=== PATIENT | male | born 1945 | race Caucasian/White ===

== ENCOUNTER 2019-06-15 14:25 | Inpatient (IN) | payer MEDICARE, OTHER ==
[~2019-06-15] VITALS: Ht 175.3 cm; Wt 81.9 kg
[~2019-06-15 14:25] MED LIST: ATOR20TA; FEXO-8; FURO1TAB31; LEVO25TA49; MONT4GRA; POTA-167
[2019-06-15 15:19] LABS: Basophils # (auto) 0.1 uL; Basophils % (auto) 0.5 % (0.0-2.0); Eosinophils # (auto) 0 uL; Hematocrit 44.4 % (41.0-53.0); Hemoglobin 15.1 g/dL (13.5-17.5); Lymphocytes # (auto) 0.8 uL; Mean Corpuscular Hemoglobin 32.2 pg (28.0-32.0); Mean Corpuscular Volume 94.6 fL (80.0-100.0); Monocytes # (auto) 1.9 uL; Monocytes % (auto) 12.6 % (0.0-12.0); Neutrophils # (auto) 12.6 uL; Neutrophils % (auto) 81.9 % (37.0-80.0); Platelet Count (auto) 389 10^3/uL (140-450); Red Blood Cells 4.69 10^6/uL (4.5-5.90); Red Cell Distribution Width 13.2 % (11.8-14.3); White Blood Cell 15.4 10^3/uL (4.4-10.8)
[2019-06-15 15:29] LABS: Albumin 3.2 g/dL (3.4-5.0); Calcium 8.9 mg/dL (8.5-10.1); Potassium 3.2 mmol/L (3.5-5.1)
[2019-06-15 15:32] LABS: BUN/Creatinine Ratio 22.5
[2019-06-15 15:34] LABS: Bilirubin, Total 0.8 mg/dL (0.2-1.0); Total Protein 7.8 g/dL (6.4-8.2)
[2019-06-15] MEDS ORDERED: SODIUM CHLORIDE 0.9% 1,000 ML IV ONE (16:11)
[2019-06-15] MEDS ORDERED: CLINDAMYCIN 600MG IV 50 ML IV ONE (16:15)
[2019-06-15] MEDS ORDERED: cefTRIAXone 1GM/50ML D5W 50 ML IV ONE (16:15)
[2019-06-15 17:03] LABS: Lactic Acid w/Reflex 4.6 mmol/L (0.4-2.0)
[2019-06-15] MEDS ORDERED: KETOROLAC TROMETH 30 MG/ML 1ML VIAL IV ONE (18:30)
[2019-06-15] MEDS ORDERED: ALBUTEROL SULF 2.5 MG/0.5ML(0.5%) NEB SOLN NEB STA ×2 (22:03→22:19)
[2019-06-15] MEDS ORDERED: ALBUTEROL SULF 2.5 MG/0.5ML(0.5%) NEB SOLN ONE (22:06)
[2019-06-15] MEDS ORDERED: IPRATROPIUM BROM 0.5 MG/2.5ML INH SOL ONE (22:06)
[2019-06-15 22:08] LABS: Urine Bacteria NONE SEEN /hpf (None Seen); Urine Blood 3+ /uL (Negative); Urine Hyaline Cast FEW /lpf (0 - 2); Urine Mucus MANY (None Seen); Urine Specific Gravity 1.028 (1.001-1.035); Urine Sperm PRESENT /hpf (None Seen); Urine WBC 24 /hpf (0 - 3)
[2019-06-15] MEDS ORDERED: IPRATROPIUM BROM 0.5 MG/2.5ML INH SOL NEB ONE ×2 (22:15→22:30)
[2019-06-15] MEDS ORDERED: FUROSEMIDE 20 MG/2 ML VIAL IV ONE (22:30)
[2019-06-16] MEDS ORDERED: ONDANSETRON HCL 4 MG/2 ML VIAL IV PRN (01:15)
[2019-06-16] MEDS ORDERED: NITROGLYCERIN 0.4 MG SL TAB SL PRN (01:15)
[2019-06-16] MEDS ORDERED: ACETAMINOPHEN 325 MG TAB PO PRN (01:15)
[2019-06-16] MEDS ORDERED: MORPHINE SULF INJ 2 MG/ML SYRINGE 1ML IV PRN (01:15)
[2019-06-16] MEDS: HYDROcodone-ACET 5/325MG TAB PO PRN ×2 (01:54→14:07)
[2019-06-16] MEDS ORDERED: POTASSIUM CHL 20 Meq TABLET PO ONE ×2 (02:00→15:30)
[2019-06-16] MEDS ORDERED: IOHEXOL 350 MG/ML 100ML IJ ONE (02:49)
[2019-06-16 03:29] VITALS: BP 124/81
[2019-06-16] MEDS ORDERED: ENOXAPARIN SOD 100 MG/1 ML SYRINGE SC ONE (03:30)
[2019-06-16] MEDS: CLINDAMYCIN 600MG IV 50 ML IV SCH ×3 (03:44→19:49)
[2019-06-16] MEDS: LEVOTHYROXINE SODIUM 25 MCG TAB PO SCH (07:14)
--- NOTE | 2019-06-16 08:30 | NUR ---
Telemetry admit from ER KOJOELOISE admitted to Telemetry unit, NO SBAR received. Patient oriented to Lashanda Castanon, primary RN, unit, room, bed, and unit policies regarding patient care and visiting hours. Patient now on continuous telemetry monitoring, tele box # 39 and telemetry reading on arrival to unit is sinus tach 105. Patient placed on bedside oxygen, weighed by bedscale and encouraged to call if they need something. Bed locked in lowest position, side rails up x3, call light within reach, bed alarm on for safety. All questions and concerns addressed, patient verbalized understanding.
[2019-06-16 09:00] VITALS: BP 153/78
--- NOTE | 2019-06-16 09:41 | NUR ---
URINE SENT TO LAB
[2019-06-16] MEDS ORDERED: ENOXAPARIN SOD 80 MG/0.8ML SYRINGE SC ONE (10:00)
[2019-06-16] MEDS: ASPirin 81 mg TAB PO SCH (10:00)
[2019-06-16] MEDS ORDERED: ENOXAPARIN SOD 40 MG/0.4 ML SYRINGE SC SCH (10:00)
[2019-06-16] MEDS: FUROSEMIDE 40 MG TAB PO SCH (10:00)
[2019-06-16] MEDS: ENOXAPARIN SOD 80 MG/0.8ML SYRINGE SC SCH ×2 (10:00→23:29)
[2019-06-16] MEDS: cefTRIAXone 1GM/50ML D5W 50 ML IV SCH (10:00)
[2019-06-16] MEDS: FAMOTIDINE 20 MG TAB PO SCH ×2 (10:00→23:29)
--- NOTE | 2019-06-16 10:45 | NUR ---
WOUND PHOTOS TAKEN.
--- NOTE | 2019-06-16 11:27 | NUR ---
ROBERT NUNEZ REGARDING PT. REQUESTING NICOTINE PATCH.
[2019-06-16] MEDS: IPRATROPIUM BROM 0.5 MG/2.5ML INH SOL NEB SCH ×4 (11:45→23:34)
[2019-06-16] MEDS: ALBUTEROL SULF 2.5 MG/0.5ML(0.5%) NEB SOLN NEB SCH ×4 (11:45→23:33)
[2019-06-16 11:53] LABS: Basophils # (auto) 0.1 uL; Basophils % (auto) 0.7 % (0.0-2.0); Eosinophils # (auto) 0 uL; Eosinophils % (auto) 0.2 % (0.0-7.0); Hemoglobin 13.8 g/dL (13.5-17.5); Lymphocytes # (auto) 1.1 uL; Lymphocytes % (auto) 13.3 % (10.0-50.0); Mean Corpuscular Hemoglobin 32.4 pg (28.0-32.0); Mean Corpuscular Hgb Conc. 34.4 g/dL (32.0-36.0); Mean Corpuscular Volume 94.2 fL (80.0-100.0); Monocytes # (auto) 0.9 uL; Monocytes % (auto) 10.6 % (0.0-12.0); Neutrophils # (auto) 6.1 uL; Neutrophils % (auto) 75.2 % (37.0-80.0); Platelet Count (auto) 292 10^3/uL (140-450); Red Blood Cells 4.25 10^6/uL (4.5-5.90); Red Cell Distribution Width 13.3 % (11.8-14.3)
[2019-06-16 12:06] LABS: Albumin 2.6 g/dL (3.4-5.0); Calcium 8.5 mg/dL (8.5-10.1); Magnesium 1.9 mg/dL (1.6-2.6); Potassium 3.4 mmol/L (3.5-5.1)
[2019-06-16 12:11] LABS: BUN/Creatinine Ratio 29.7; Bilirubin, Total 0.7 mg/dL (0.2-1.0); Total Protein 6.9 g/dL (6.4-8.2)
[2019-06-16 13:00] VITALS: BP 135/76
--- NOTE | 2019-06-16 13:05 | NUR ---
Patient taken to radiology. No distress upon departure.
--- NOTE | 2019-06-16 15:26 | NUR ---
Alonso bag changed Found bag leaking all over the floor after 2nd attempt to lock close, continues to leak. Complete bag changed out.
[2019-06-16] MEDS ORDERED: NICOTINE 21MG/24 HR TOPICAL PATCH TD ONE (15:30)
--- NOTE | 2019-06-16 16:03 | NUR ---
Critical lab value Trop 1.18, trending down. MD Solorzano aware. No new orders.
[2019-06-16 17:00] VITALS: BP 165/105
[2019-06-16] MEDS ORDERED: LEVO125T7 PO (17:45)
[2019-06-16] MEDS: POTASSIUM CHL 20MEQ/100ML 100 ML IV SCH ×2 (17:57→23:24)
--- NOTE | 2019-06-16 19:30 | NUR ---
Opening Shift Note Assumed care of patient, awake and alert. No S/S of distress/SOB or pain. Instructed on POC and to call for assist PRN, will continue to monitor for changes Q1hr and PRN.
--- NOTE | 2019-06-16 21:00 | NUR ---
Right shoulder scabbed wound and right dawkins scabbed wound cleansed with wound cleanser, pat dry with sterile gauze. Right shoulder scabbed wound covered with optifoam gentle and right dawkins covered with non-adherent dressing and kerlix.
[2019-06-16 22:00] VITALS: BP 144/87
[2019-06-16] MEDS ORDERED: POTASSIUM CHL 20MEQ/100ML 100 ML IV SCH (22:00)
[2019-06-16] MEDS ORDERED: FUROSEMIDE 20 MG/2 ML VIAL IV ONE (22:45)
--- NOTE | 2019-06-16 22:45 | NUR ---
Hospitalist Dimitry Subramanian,ROSALINA, made aware of patient's shortness of breath, sounding wet. Lasix 20 mg IV given as ordered by hospitalist. Care continued.
[2019-06-16] MEDS: ATORVASTATIN 20 MG TAB PO SCH (23:29)
[2019-06-16] MEDS: MONTELUKAST SODIUM 10 MG TAB PO SCH (23:29)
[2019-06-17] MEDS: TEMAZEPAM 15 MG CAP PO PRN (00:51)
[2019-06-17] MEDS: CLINDAMYCIN 600MG IV 50 ML IV SCH ×3 (02:40→18:32)
[2019-06-17 05:00] VITALS: BP 132/76
[2019-06-17] MEDS: ALBUTEROL SULF 2.5 MG/0.5ML(0.5%) NEB SOLN NEB SCH ×3 (06:28→19:34)
[2019-06-17] MEDS: IPRATROPIUM BROM 0.5 MG/2.5ML INH SOL NEB SCH ×3 (06:28→19:34)
[2019-06-17] MEDS: LEVOTHYROXINE SODIUM 25 MCG TAB PO SCH (06:44)
[2019-06-17 07:21] LABS: Basophils # (auto) 0.1 uL; Basophils % (auto) 0.9 % (0.0-2.0); Eosinophils # (auto) 0 uL; Eosinophils % (auto) 0.5 % (0.0-7.0); Hematocrit 36.2 % (41.0-53.0); Hemoglobin 12.6 g/dL (13.5-17.5); Lymphocytes # (auto) 1.4 uL; Lymphocytes % (auto) 18.8 % (10.0-50.0); Mean Corpuscular Hgb Conc. 34.9 g/dL (32.0-36.0); Mean Corpuscular Volume 94.6 fL (80.0-100.0); Monocytes # (auto) 0.9 uL; Monocytes % (auto) 11.9 % (0.0-12.0); Neutrophils # (auto) 5.1 uL; Neutrophils % (auto) 67.9 % (37.0-80.0); Platelet Count (auto) 288 10^3/uL (140-450); Red Blood Cells 3.83 10^6/uL (4.5-5.90); Red Cell Distribution Width 13.3 % (11.8-14.3); White Blood Cell 7.6 10^3/uL (4.4-10.8)
--- NOTE | 2019-06-17 07:30 | NUR ---
Report given to oncoming RN.
[2019-06-17 07:39] LABS: Calcium 8.3 mg/dL (8.5-10.1); Potassium 3.7 mmol/L (3.5-5.1)
[2019-06-17 09:00] VITALS: BP 140/72
[2019-06-17] MEDS ORDERED: chlordiazePOXIDE HCL 5 MG CAP PO PRN (09:30)
[2019-06-17] MEDS ORDERED: LORazepam 2MG/ML-1ML VIAL IV PRN (09:30)
--- NOTE | 2019-06-17 09:36 | NUR ---
Dr. Wells in to see patient as hospitalist.
[2019-06-17] MEDS: cefTRIAXone 1GM/50ML D5W 50 ML IV SCH (09:53)
[2019-06-17] MEDS: ASPirin 81 mg TAB PO SCH (09:56)
[2019-06-17] MEDS: THIAMINE HCL 100 MG TAB PO SCH (09:56)
[2019-06-17] MEDS: FOLIC ACID 1 MG TAB PO SCH (09:56)
[2019-06-17] MEDS: MULTIPLE VITAMINS W/ MINERALS TAB PO SCH (09:56)
[2019-06-17] MEDS: FAMOTIDINE 20 MG TAB PO SCH ×2 (09:56→21:56)
[2019-06-17] MEDS: FUROSEMIDE 40 MG TAB PO SCH (09:57)
[2019-06-17] MEDS: ENOXAPARIN SOD 80 MG/0.8ML SYRINGE SC SCH ×3 (10:00→21:57)
--- NOTE | 2019-06-17 11:45 | NUR ---
WOUND CARE NOTE: IN TO SEE PATIENT AT THIS TIME PER WOUND CARE CONSULT REQUEST. PATIENT ADMITTED TO [facility] WITH DIAGNOSIS OF SEPSIS, RLE CELLULITIS. CURRENT AYDEE SCORE IS 16. PATIENT STATES THAT HE HAS HISTORY WITH CHRONIC VENOUS STASIS ULCERS. CURRENTLY HE HAS ONE LARGE 9 X 14 CM FULL THICKNESS STASIS ULCER TO THE RIGHT ROBERTS/CALF. PATIENT STATES THAT ULCER HAS BEEN OPEN FOR MORE THAN 2 MONTHS. WOUND LOOKS CELLULITIC, WITH EDEMA, DARK RED ERYTHEMA. WOUND IS WEEPING LIGHT TO MODERATE AMOUNTS OF SEROUS DRAINAGE. APPLIED THERAHONEY GAUZE, OPTILOCK DRESSING, WRAPPED WITH KERLIX, SECURE WITH TAPE. ELEVATED LEG UP ONTO PILLOWS FOR EDEMA CONTROL. PATIENT EDUCATED IN WOUND CARE AND STASIS ULCERS. PATIENT VERBALIZED UNDERSTANDING. PATIENT HAS A 3 X 2.5 DM PARTIAL THICKNESS SKIN TEAR/ABRASION TO THE RIGHT SHOULDER A RESULT OF FALLING. APPLIED THERAHONEY, OPTIFOAM GENTLE DRESSING. RECOMMEND: FREQUENT TURN SCHEDULE Q 2 HOURS, PRN CONDITION PERMITS, WITH PRESSURE REDISTRIBUTION USING PILLOWS/WEDGES WHEN IN BED, SKIN/WOUND CARE PLAN, Q 3 DAY/PRN DRESSING CHANGE TO RIGHT SHOULDER WOUND, EOD/PRN DRESSING CHANGE TO WOUND ON RIGHT ROBERTS/CALF, ELEVATION OF LEGS UP ONTO PILLOWS FOR EDEMA CONTROL, DIETARY CONSULT, CONTINUED MONITORING BY WOUND CARE TEAM. Addendum: 06/17/19 at 1841 by Veronika Daniels RN Amended: Links added.
[2019-06-17 13:00] VITALS: BP 118/64
[2019-06-17 17:00] VITALS: BP 142/85
--- NOTE | 2019-06-17 20:00 | NUR ---
RECEIVE IN BED ATCHING TV NO SOB NOTED
[2019-06-17] MEDS: MONTELUKAST SODIUM 10 MG TAB PO SCH (21:56)
[2019-06-17] MEDS: ATORVASTATIN 20 MG TAB PO SCH (21:56)
[2019-06-17 22:00] VITALS: BP 145/85
[2019-06-18] MEDS: ALBUTEROL SULF 2.5 MG/0.5ML(0.5%) NEB SOLN NEB SCH ×4 (00:06→18:15)
[2019-06-18] MEDS: IPRATROPIUM BROM 0.5 MG/2.5ML INH SOL NEB SCH ×4 (00:07→18:15)
[2019-06-18] MEDS: TEMAZEPAM 15 MG CAP PO PRN ×2 (02:18→22:07)
[2019-06-18] MEDS: CLINDAMYCIN 600MG IV 50 ML IV SCH ×3 (02:31→18:25)
[2019-06-18 05:08] VITALS: BP 135/77
[2019-06-18] MEDS: LEVOTHYROXINE SODIUM 25 MCG TAB PO SCH (06:14)
[2019-06-18 08:30] VITALS: BP 151/84
--- NOTE | 2019-06-18 09:05 | NUR ---
Dr. Wells in to see patient as hospitalist.
[2019-06-18] MEDS: ENOXAPARIN SOD 80 MG/0.8ML SYRINGE SC SCH ×2 (10:11→22:07)
[2019-06-18] MEDS: MULTIPLE VITAMINS W/ MINERALS TAB PO SCH (10:11)
[2019-06-18] MEDS: ASPirin 81 mg TAB PO SCH (10:11)
[2019-06-18] MEDS: FUROSEMIDE 40 MG TAB PO SCH (10:12)
[2019-06-18] MEDS: THIAMINE HCL 100 MG TAB PO SCH (10:13)
[2019-06-18] MEDS: FAMOTIDINE 20 MG TAB PO SCH ×2 (10:13→22:06)
[2019-06-18] MEDS: FOLIC ACID 1 MG TAB PO SCH (10:13)
[2019-06-18] MEDS: cefTRIAXone 1GM/50ML D5W 50 ML IV SCH (10:14)
[2019-06-18 12:30] VITALS: BP 152/88
--- NOTE | 2019-06-18 13:45 | NUR ---
NUTRITION CONSULT/ASSESSMENT NOTES Please refer to link notes of nutrition screen form filed under the intervention section of the plan of care for further details. Est. Needs: 1700 kcal to 2100 kcal (20-25 kcal/kgBW), 85 gms to 101 gms pro (1.0-1.2 gms/kgBW, mod hypoalbuminemia wound healing ). Will continue to monitor pertinent labs and reassess nutrient need prn Thank you fort this consult. Addendum: 06/18/19 at [address] Amended: Links added.
[2019-06-18 17:09] VITALS: BP 139/87
[2019-06-18 21:00] VITALS: BP 135/75
[2019-06-18] MEDS: ATORVASTATIN 20 MG TAB PO SCH (22:06)
[2019-06-18] MEDS: MONTELUKAST SODIUM 10 MG TAB PO SCH (22:06)
--- NOTE | 2019-06-18 23:30 | NUR ---
Opening Shift Note Assumed care of patient, asleep. No S/S of distress/SOB or pain. Instructed on POC and to call for assist PRN, will continue to monitor for changes Q1hr and PRN.Report given by Kaylah Harley
[2019-06-19] VITALS (8 sets, daily range): BP systolic 117–150; BP diastolic 69–79
[2019-06-19] MEDS: ALBUTEROL SULF 2.5 MG/0.5ML(0.5%) NEB SOLN NEB SCH ×5 (00:19→20:01)
[2019-06-19] MEDS: IPRATROPIUM BROM 0.5 MG/2.5ML INH SOL NEB SCH ×5 (00:20→20:00)
[2019-06-19] MEDS: CLINDAMYCIN 600MG IV 50 ML IV SCH ×3 (02:37→18:44)
[2019-06-19 05:07] LABS: Basophils # (auto) 0.1 uL; Eosinophils # (auto) 0.2 uL; Eosinophils % (auto) 3.4 % (0.0-7.0); Hematocrit 40.9 % (41.0-53.0); Hemoglobin 14.2 g/dL (13.5-17.5); Lymphocytes # (auto) 1.1 uL; Lymphocytes % (auto) 17.5 % (10.0-50.0); Mean Corpuscular Hemoglobin 32.9 pg (28.0-32.0); Mean Corpuscular Hgb Conc. 34.8 g/dL (32.0-36.0); Mean Corpuscular Volume 94.6 fL (80.0-100.0); Monocytes # (auto) 0.9 uL; Neutrophils # (auto) 3.8 uL; Neutrophils % (auto) 63.1 % (37.0-80.0); Nucleated Red Blood Cells % 0.1 %; Platelet Count (auto) 296 10^3/uL (140-450); Red Blood Cells 4.32 10^6/uL (4.5-5.90); Red Cell Distribution Width 13.1 % (11.8-14.3)
[2019-06-19 05:24] LABS: Albumin 2.5 g/dL (3.4-5.0); Calcium 8.1 mg/dL (8.5-10.1); Potassium 3.6 mmol/L (3.5-5.1)
[2019-06-19 05:27] LABS: BUN/Creatinine Ratio 22.4
[2019-06-19 05:29] LABS: Bilirubin, Total 0.8 mg/dL (0.2-1.0); Total Protein 6.8 g/dL (6.4-8.2)
[2019-06-19] MEDS: LEVOTHYROXINE SODIUM 25 MCG TAB PO SCH (05:47)
[2019-06-19 07:11] LABS: Urine Bacteria NONE SEEN /hpf (None Seen); Urine Blood 3+ /uL (Negative); Urine WBC 1083 /hpf (0 - 3); Urine WBC Clumps PRESENT /hpf (None Seen)
--- NOTE | 2019-06-19 07:32 | NUR ---
Report given to Kaylah Rankin, patient is resting no distress.
[2019-06-19 08:01] LABS: Urine Specific Gravity 1.021 (1.001-1.035)
--- NOTE | 2019-06-19 08:15 | NUR ---
Spoke with stress lab, patient try held for stress test.
--- NOTE | 2019-06-19 09:00 | NUR ---
Patient off unit to stress lab
[2019-06-19] MEDS ORDERED: ADENOSINE 154 MG in GIVE UN-DILUTED 0 ML IV STA (09:25)
[2019-06-19] MEDS ORDERED: ASPirin 81 mg TAB PO SCH (10:00)
--- NOTE | 2019-06-19 10:15 | NUR ---
Patient back on unit, stress test not completed, spoke with Lor TECHNICAL EXPERT and Radha TECHNICAL EXPERT about patient stress test, they spoke with patient and talked with radiology. Patient to be taken back down to complete test.
[2019-06-19] MEDS: cefTRIAXone 1GM/50ML D5W 50 ML IV SCH (10:16)
[2019-06-19] MEDS ORDERED: DOBUTamine 1000MCG/ML 250 ML IV ONE (10:35)
[2019-06-19] MEDS ORDERED: ATROPINE SULF 1 MG/10ml SYR ONE (10:49)
[2019-06-19 11:37] LABS: Folate (Folic Acid) 4.51 ng/mL (5.38-24)
--- NOTE | 2019-06-19 12:15 | NUR ---
Family at bedside, patient back from stress lab, patient family refusing to allow patient care upset about patient bruised arm and dressings not being changed, patient family informed the patient has been down at stress test, patient family unhappy with care, Charge nurse notified.
[2019-06-19] MEDS ORDERED: CYANOCOBALAMIN 500 MCG TAB PO ONE (12:45)
[2019-06-19] MEDS ORDERED: ADENOSINE 75 MG in GIVE UN-DILUTED 0 ML IV STA ×2 (13:21→13:25)
--- NOTE | 2019-06-19 13:25 | NUR ---
I ENTERED INTO MY PATIENT'S ROOM AFTER BREAKING SOMEONE FOR LUNCH WITH MY ORIENTEE (GEETA CORONA) TO OBTAIN PATIENT'S VITAL SIGNS. FAMILY MEMBERS WERE AT BEDSIDE AND BEGAN ASKING QUESTIONS SOON WE ENTERED THE ROOM, SUCH ; WHEN DID THE PATIENT RETURN FROM THE PROCEDURE? WHY HAS THE PATIENT BEEN WAITING FOR 45 MINUTES BEFORE ANYONE ENTERED THE ROOM? WHAT IS THE PATIENT'S STATUS? HOW COME THE PATIENT'S BEDDING AND GOWN HAVEN'T BEEN CHANGED YET? THEY WERE ALSO MAKING COMPLAINTS ABOUT HOW UPSET THEY WERE WITH PATIENT CARE. I APOLOGIZED TO THE FAMILY IN HOPES TO CALM THEM DOWN AND ASKED IF I CAN STILL OBTAIN THE PATIENT'S VITAL SIGNS SINCE HE RECENTLY RETURNED FROM A PROCEDURE. THE FAMILY STATED, "HE JUST STARTED EATING I RATHER YOU LEAVE HIM ALONE". I INFORMED THE FAMILY THAT I WOULD STILL LIKE TO OBTAIN THE PATIENT'S VITALS SO I CAN GIVE THEM TO THE NURSE. THE FAMILY STILL DECLINED AND BEGAN TO RAISE THEIR VOICES STATING THAT I WAS BEING, "SHORT" WITH THEM AND RUDE. I INFORMED THE FAMILY THAT I WOULD LET THE NURSE KNOW WHAT THEY REQUESTED AND THAT I WOULD LEAVE THE PATIENT ALONE. I WALKED OUT OF THE ROOM TO INFORM THE NURSE ABOUT HER TAKING THE VITAL SIGNS INSTEAD OF ME. THE FAMILY MEMBERS WALKED OUT BEHIND ME AND BEGAN INTERRUPTING MY EXPLANATION TO THE NURSE. I BECAME SILENT AND LET THE FAMILY CONTINUE TALKING AT BOTH MYSELF AND THE NURSE. BEFORE I COULD REMOVE MYSELF FROM THE NURSING STATION FAMILY BEGAN TO DIRECT THEIR AGGRESSION TOWARDS ME. I REMAINED SILENT IN FRONT OF FELLOW STAFF MEMBERS THE FAMILY CONTINUED. WITHOUT RESPONDING TO THEIR VERBAL ABUSE, I REMOVED MYSELF FROM THE UNIT AND DECIDED TO STEP AWAY AND HEAD TOWARDS THE BREAK ROOM. I INFORMED MY ORIENTEE OF HOW TO INFORM THE NURSES WHEN A PATIENT OR FAMILY REFUSES CARE TO THE PATIENT. I AM EXPLAINING THE STEPS TO INFORMING THE NURSE, ANOTHER FAMILY MEMBER COMES OUT OF THE ROOM AND APPROACHES BOTH MYSELF AND THE ORIENTEE WITH HER PHONE OUT WHILE SHE IS WATCHING US AWAY FROM THE NURSING STATION. AT THAT POINT NURSE EZEKIEL COMES OVER TO ASK IF THE FAMILY NEEDED HELP WITH SOMETHING IN ORDER TO GAIN THE FAMILY MEMBER'S ATTENTION AND DIRECT THE FAMILY AWAY FROM US. SHE BEGAN CALLING OUT EXPLICIT LANGUAGE SHE HEADED BACK TO THE ROOM. THE SECURITY CLERK THEN CALLED SECURITY TO ENSURE THAT THERE WAS SOME FORM OF REINFORCEMENT TO HELP CALM THE SITUATION DOWN.
--- NOTE | 2019-06-19 14:45 | NUR ---
PATIENT REFUSED TO BE CLEANED UP, PATIENT AGREED TO BE CLEANED UP AFTER RESTING AGREED TO 5PM FOR DRESSING CHANGE AND BED BATH.
[2019-06-19] MEDS: FAMOTIDINE 20 MG TAB PO SCH ×2 (14:51→22:11)
[2019-06-19] MEDS: FUROSEMIDE 40 MG TAB PO SCH (14:51)
[2019-06-19] MEDS: THIAMINE HCL 100 MG TAB PO SCH (14:52)
[2019-06-19] MEDS: MULTIPLE VITAMINS W/ MINERALS TAB PO SCH (14:52)
[2019-06-19] MEDS: FOLIC ACID 1 MG TAB PO SCH (14:53)
[2019-06-19] MEDS: ENOXAPARIN SOD 80 MG/0.8ML SYRINGE SC SCH (14:53)
--- NOTE | 2019-06-19 17:15 | NUR ---
BED BATH GIVEN AND ZGUARD APPLIED TO RASH ON PATIENT BACK
[2019-06-19] MEDS ORDERED: NICOTINE 21MG/24 HR TOPICAL PATCH TD ONE (17:30)
--- NOTE | 2019-06-19 18:00 | NUR ---
SCHWARZ CATHETER IRRIGATED, WOUND PHOTOS TAKEN, WOUND DRESSINGS CHANGED.
--- NOTE | 2019-06-19 18:50 | NUR ---
DR WALKER AT BEDSIDE
[2019-06-19] MEDS ORDERED: diphenhdrAMINE HCL 50 MG/1 ML VL IV ONE (19:00)
--- NOTE | 2019-06-19 19:25 | NUR ---
REPORT GIVEN TO LILI NOLAND, COMPUTER SECURITY SPECIALIST WILL ASSUME CARE.
--- NOTE | 2019-06-19 19:53 | NUR ---
RECEIVED PATIENT FROM DAY SHIFT RN. PATIENT RESTING IN BED. NO S/S OF DISTRESS NOTED. C/O PAIN @ 610. WILL COME BACK FOR PAIN MEDICATION LATER. SCHWARZ CATH IN PLACE DRAINING GRAVITY WITH FRESH RED URINE. DRESSING ON RIGHT LEG C/D/I AND ELEVATED WITH A PILLOW. REINFORCED NPO AFTER MIDNIGHT FOR PROCEDURE TOMORROW. POC INSTRUCTED AND ENCOURAGED PATIENT TO CALL FOR HUMAN SERVICES INSTRUCTOR IF NEEDED. BED IN LOWEST POSITION WITH SIDE RAILS UP X 2. CALL VERMA WITHIN REACH. ALARM ON. CONTINUE TO MONITOR FOR CHANGES Q1H AND PRN.
[2019-06-19] MEDS: HYDROcodone-ACET 5/325MG TAB PO PRN (20:22)
--- NOTE | 2019-06-19 20:24 | NUR ---
MEDICATED PATIENT FOR PAIN @ 02/27. CONTINUE TO MONITOR.
[2019-06-19] MEDS: SALINE 0.65 % NASAL SPRAY 45ML BOTTLE EACHNOSTRI SCH (22:10)
[2019-06-19] MEDS: ATORVASTATIN 20 MG TAB PO SCH (22:11)
[2019-06-19] MEDS: MONTELUKAST SODIUM 10 MG TAB PO SCH (22:11)
--- NOTE | 2019-06-19 23:42 | NUR ---
BLADDER IRRIGATION 200 ML, AND WITHDREW 200 ML RED URINE WITH CLOTS, UNTIL TURNED PINK. PATIENT TOLERATED WELL. CONTINUE TO MONITOR.
[2019-06-20] MEDS: IPRATROPIUM BROM 0.5 MG/2.5ML INH SOL NEB SCH ×5 (00:29→19:08)
[2019-06-20] MEDS: ALBUTEROL SULF 2.5 MG/0.5ML(0.5%) NEB SOLN NEB SCH ×5 (00:29→19:08)
--- NOTE | 2019-06-20 00:49 | NUR ---
REINFORCED NPO FROM NOW ON. FOOD AND WATER REMOVED FROM BEDSIDE. CONTINUE TO MONITOR.
--- NOTE | 2019-06-20 03:00 | NUR ---
PATIENT RESTING IN BED. NO S/S OF DISTRESS NOTED. CONTINUE TO MONITOR.
[2019-06-20] MEDS: CLINDAMYCIN 600MG IV 50 ML IV SCH ×3 (03:02→18:11)
[2019-06-20 04:54] LABS: INR 0.95 (0.9-1.15); Partial Thromboplastin Time 30.2 sec (23.64-32.05)
[2019-06-20 04:58] VITALS: BP 137/72
--- NOTE | 2019-06-20 05:55 | NUR ---
PER ARMINDA SR, PATIENT SLEEPING. AND DID NOT WANT TO HAVE CHG WIPER NOW. PATIENT PREFERRED TO DO IT LATER. CONTINUE TO MONITOR.
[2019-06-20] MEDS: SALINE 0.65 % NASAL SPRAY 45ML BOTTLE EACHNOSTRI SCH ×2 (06:15→22:01)
[2019-06-20] MEDS: LEVOTHYROXINE SODIUM 25 MCG TAB PO SCH (06:15)
--- NOTE | 2019-06-20 06:15 | NUR ---
BLADDER IRRIGATION 150ML, AND WITHDREW 150 ML RED URINE WITH CLOTS, UNTIL TURNED PINK. PATIENT TOLERATED WELL. CONTINUE TO MONITOR.
--- NOTE | 2019-06-20 07:25 | NUR ---
Opening Note Received report from shift manager RN. Patient is awake, alert and oriented x4. No signs or symptoms of distress noted at this time. Patient is on 2L NC, denies shortness of breath. Patient denies pain at this time. Patient is NPO for scheduled procedure today. Patient has Foely catheter patent, and draining with hematuria. Reviewed plan of care with patient, patient verbalized understanding. Bed in low and locked position, call light within reach. Will continue to monitor Q1 hour and PRN.
--- NOTE | 2019-06-20 07:26 | NUR ---
Patient taken down for CT
--- NOTE | 2019-06-20 07:39 | NUR ---
Patient back to room
[2019-06-20] MEDS: cefTRIAXone 1GM/50ML D5W 50 ML IV SCH (08:31)
[2019-06-20 09:00] VITALS: BP 144/90
[2019-06-20] MEDS: NICOTINE 21MG/24 HR TOPICAL PATCH TD SCH (09:48)
[2019-06-20] MEDS: THIAMINE HCL 100 MG TAB PO SCH (10:00)
[2019-06-20] MEDS: CYANOCOBALAMIN 500 MCG TAB PO SCH (10:00)
[2019-06-20] MEDS: MULTIPLE VITAMINS W/ MINERALS TAB PO SCH (10:00)
[2019-06-20] MEDS: FOLIC ACID 1 MG TAB PO SCH (10:00)
[2019-06-20] MEDS: FAMOTIDINE 20 MG TAB PO SCH ×2 (10:00→22:01)
--- NOTE | 2019-06-20 10:38 | NUR ---
Dr. Wells at bedside Reviewing plan of care with patient.
[2019-06-20] MEDS: FUROSEMIDE 40 MG TAB PO SCH (11:37)
--- NOTE | 2019-06-20 12:15 | NUR ---
Patient taken down to OR
[2019-06-20] MEDS ORDERED: ceFAZolin 1GM VL ONE (12:56)
[2019-06-20] MEDS ORDERED: fentaNYL CITRATE 100 MCG/2 ML VL ONE (12:57)
[2019-06-20] MEDS ORDERED: MIDAZOLAM HCL 1MG/1ML-2 ML VIAL ONE (12:57)
[2019-06-20 13:00] VITALS: BP 129/70
[2019-06-20] MEDS ORDERED: ONDANSETRON HCL 4 MG/2 ML VIAL IV PRN (13:00)
[2019-06-20] MEDS ORDERED: MIDAZOLAM HCL 1MG/1ML-2 ML VIAL IV PRN (13:00)
[2019-06-20] MEDS ORDERED: MORPHINE SULFATE 4 MG/ML SYR/VIAL IV PRN (13:00)
[2019-06-20] MEDS ORDERED: KETOROLAC TROMETH 30 MG/ML 1ML VIAL IV ONE (13:00)
[2019-06-20] MEDS ORDERED: HYDROmorphone HCL 2 MG/ML VL IV PRN (13:00)
[2019-06-20] MEDS ORDERED: LABETALOL HCL 5 MG/ML 4ML SYRINGE IV PRN (13:00)
[2019-06-20] MEDS ORDERED: ePHEDrine SULFATE 50 MG/ML AMP IV PRN (13:00)
[2019-06-20] MEDS ORDERED: PROPOFOL 10 MG/ML 20 ML IV ONE (13:17)
[2019-06-20] MEDS ORDERED: diphenhdrAMINE HCL 50 MG/1 ML VL ONE (13:17)
--- NOTE | 2019-06-20 14:07 | NUR ---
assessment Patient is a 73 year old male who is alert and oriented. Patients cognitive abilities are intact. Prior to admission patient lived home alone and functioned with assistance. Per patient he will return home to his prior living arrangements post discharge and family will transport him home. Patients emergency contact is his daughter Alina [phone]. Patient has a fww, cane, and wheelchair for home use. Patients PCP is Dr Gallo. Per Alina she lives 1 minute away and she is the one to assist patient with cooking and cleaning. I have referred patient to the [place] aide and assist program. Sonali will meet with patient at bedside. Patient may need home health if he goes home with IV ABX. Patients post discharge needs to be determined prior to discharge. I informed patient he has a right to speak to a social service agency director regarding all care. I informed patient he has a right to participate in any and all discharge planning. Patient does not have a POA and advanced directive. I have offered patient information on POA and advanced directives. I informed the patient the advantages and benefits of having an Advanced Directive. Patient verbalized understanding and agreed to discharge plan. Addendum: 06/20/19 at 1413 by Charlotte DODGE Amended: Links added.
--- NOTE | 2019-06-20 14:10 | NUR ---
Patient back to room Patient is s/p right lower extremity debridement. Vital signs stable. Patient is awake, alert and oriented x4. No signs or symptoms of distress noted at this time. Patient is on 3L NC, denies shortness of breath. Bed alarm on for safety. Bed in low and locked position, call light within reach. Will continue to monitor Q1 hour and PRN.
--- NOTE | 2019-06-20 14:25 | NUR ---
Called daughter Gin Update on patient status and plan of care. Will continue to monitor
--- NOTE | 2019-06-20 15:53 | NUR ---
UNABLE TO COMPLETE ELECTROENCEPHALOGRAM. PATIENT STATED HE HAD PROCEDURE DONE TODAY AND DUE TO THAT, THE MEDICATIONS GIVEN TO HIM ARE MAKING HIM FEEL TOO TIRED. HE REQUESTED FOR EEG TO BE COMPLETED TOMORROW 06/21/19. NUZHAT CONNOR AND DR. LOOMIS INFORMED.
[2019-06-20 17:00] VITALS: BP 127/82
--- NOTE | 2019-06-20 18:00 | NUR ---
Respiratory note: PT REFUSED MED NEB TX AT THIS TIME STATING HE FELT OKAY AND WOULD TAKE HIS NEXT TX. PT'S HR 99, RR 18, SPO2 93% ON 3L NC. NO SIGNS OF ANY RESPIRATORY DISTRESS NOTED. ADVISED PT TO CALL IF TX IS NEEDED. RT NAME AND PAGER NUMBER WRITTEN ON PT'S BOARD.
--- NOTE | 2019-06-20 19:11 | NUR ---
Closing Note Report given to sex therapist RN. No signs or symptoms of distress noted at this time.
--- NOTE | 2019-06-20 19:40 | NUR ---
RECEIVED PATIENT FROM DAY SHIFT RN. PATIENT RESTING IN BED. NO S/S OF DISTRESS NOTED. DENIED PAIN FOR NOW. SCHWARZ CATH IN PLACE DRAINING GRAVITY WITH PINK URINE. DRESSING ON RIGHT LEG C/D/I AND ELEVATED WITH A PILLOW. POC INSTRUCTED AND ENCOURAGED PATIENT TO CALL FOR COURT ATTENDANT IF NEEDED. BED IN LOWEST POSITION WITH SIDE RAILS UP X 2. CALL VERMA WITHIN REACH. ALARM ON. CONTINUE TO MONITOR FOR CHANGES Q1H AND PRN.
--- NOTE | 2019-06-20 21:15 | NUR ---
TOTAL BED LINEN CHANGED. PATIENT TOLERATED WELL. CONTINUE CARE.
[2019-06-20 22:00] VITALS: BP 111/71
[2019-06-20] MEDS: ATORVASTATIN 20 MG TAB PO SCH (22:01)
[2019-06-20] MEDS: MONTELUKAST SODIUM 10 MG TAB PO SCH (22:01)
[2019-06-20] MEDS: ENOXAPARIN SOD 80 MG/0.8ML SYRINGE SC SCH (22:02)
--- NOTE | 2019-06-20 22:02 | NUR ---
MEDICATIONS ADMINISTERED ORDERED. EDUCATED PATIENT ON SIDE EFFECTS OF MEDICATIONS. PATIENT VERBALIZED UNDERSTANDING. CONTINUE TO MONITOR.
--- NOTE | 2019-06-20 22:32 | NUR ---
UPON DOING A COMPLETE LINEN CHANGE AT 2029. I OFFERED THE PATIENT A BED BATH AND GOWN CHANGE. PATIENT REFUSED UNTIL THE MORNING.
--- NOTE | 2019-06-21 00:03 | NUR ---
RT PAGED FOR BREATHING TREATMENT. CONTINUE CARE.
[2019-06-21] MEDS: IPRATROPIUM BROM 0.5 MG/2.5ML INH SOL NEB SCH ×3 (00:51→12:10)
[2019-06-21] MEDS: ALBUTEROL SULF 2.5 MG/0.5ML(0.5%) NEB SOLN NEB SCH ×3 (00:51→12:10)
[2019-06-21] MEDS: CLINDAMYCIN 600MG IV 50 ML IV SCH ×2 (02:41→11:00)
--- NOTE | 2019-06-21 04:37 | NUR ---
BED BATH DONE BY NEAR EAST ARCHEOLOGY PROFESSOR, PATIENT TOLERATED WELL. NO S/S OF DISTRESS NOTED. CONTINUE TO MONITOR.
[2019-06-21 05:00] VITALS: BP 118/70
[2019-06-21] MEDS: LEVOTHYROXINE SODIUM 25 MCG TAB PO SCH (06:08)
[2019-06-21] MEDS: SALINE 0.65 % NASAL SPRAY 45ML BOTTLE EACHNOSTRI SCH ×2 (06:08→14:11)
--- NOTE | 2019-06-21 06:44 | NUR ---
BLADDER IRRIGATION 150ML, AND WITHDREW 150 ML PINK URINE. NO CLOTS NOTED. PATIENT TOLERATED WELL. CONTINUE TO MONITOR.
[2019-06-21 09:00] VITALS: BP 148/82
[2019-06-21] MEDS: cefTRIAXone 1GM/50ML D5W 50 ML IV SCH (09:31)
[2019-06-21] MEDS: THIAMINE HCL 100 MG TAB PO SCH (09:34)
[2019-06-21] MEDS: CYANOCOBALAMIN 500 MCG TAB PO SCH (09:34)
[2019-06-21] MEDS: MULTIPLE VITAMINS W/ MINERALS TAB PO SCH (09:35)
[2019-06-21] MEDS: FOLIC ACID 1 MG TAB PO SCH (09:35)
[2019-06-21] MEDS: ENOXAPARIN SOD 80 MG/0.8ML SYRINGE SC SCH (09:35)
[2019-06-21] MEDS: FAMOTIDINE 20 MG TAB PO SCH (09:35)
[2019-06-21] MEDS: NICOTINE 21MG/24 HR TOPICAL PATCH TD SCH (09:36)
[2019-06-21] MEDS: FUROSEMIDE 40 MG TAB PO SCH (09:45)
--- NOTE | 2019-06-21 11:02 | NUR ---
Nutrition Follow-up Notes Wt.: 81.9 kg Pt states he is eating well with no GI distress associated with current diet order. Documented PO 75-100% x 3 days. Denies N/V at this time. No major changes since previous assessment. Pt. likely to be discharged today during bed rounds by physician. Est. Needs: 1700 kcal to 2100 kcal (20-25 kcal/kgBW), 85 gms to 101 gms pro (1.0-1.2 gms/kgBW, mod hypoalbuminemia wound healing ). Will continue to monitor pertinent labs and reassess nutrient need prn Labs: Na 133L, Ca 8.1L, AST 38H, ALB 2.1 Skin: Addy 15, mod risk, RLE swelling/redness and right shoulder ecchymosis GI: BM x1 today per pt PES: Altered nutrition related lab values RT acute/chronic medical condition AEB low Cr, elev Trop I, Hypocalcemia, and mod hypoalbuminemia (ongoing) Monitor: Weight trends, labs, skin integrity, GI function, PO intake/tolerance to diet F/U: MR 3-5 days Rec. 1) Continue Cardiac diet as ordered and as tolerated 2) Continue POC as ordered
--- NOTE | 2019-06-21 11:20 | NUR ---
EEG COMPLETED AT BEDSIDE. NUZHAT CLEMENTS.
[2019-06-21] MEDS ORDERED: THIA100T10 PO (11:45)
[2019-06-21] MEDS ORDERED: PROBCAP12 OR (11:45)
[2019-06-21] MEDS ORDERED: MULT-351 PO (11:45)
[2019-06-21] MEDS ORDERED: ATOR20TA50 PO (11:45)
[2019-06-21] MEDS ORDERED: FOLI1TAB6 PO (11:45)
[2019-06-21] MEDS ORDERED: LEVO125T7 PO (11:45)
[2019-06-21] MEDS ORDERED: CLIN300C8 PO (11:45)
[2019-06-21] MEDS ORDERED: FURO40TA4 PO (11:45)
[2019-06-21] MEDS ORDERED: POTA-167 PO (11:45)
[2019-06-21] MEDS ORDERED: CYAN500T3 PO (11:45)
--- NOTE | 2019-06-21 12:30 | NUR ---
Phone Call received from patient's daughter. She is concerned that the patient is unable to walk on his own at home and she just had back surgery and is unable to assist him much at this time. She prefers if the patient goes to SNF instead of home.
[2019-06-21 13:10] VITALS: BP 131/75
--- NOTE | 2019-06-21 16:00 | NUR ---
Conrad catheter dc'd Order to discontinue conrad catheter. Conrad dc'd with clean technique following deflation of balloon. Patient tolerated well with no complaints of pain. Continue care.
--- NOTE | 2019-06-21 16:30 | NUR ---
Family members at bedside, they are aware of patient's discharge to [facility].
--- NOTE | 2019-06-21 16:30 | NUR ---
Report given to Bekah at [facility] regarding patient's transfer.
--- NOTE | 2019-06-21 16:45 | NUR ---
Discharge Pictures Wound care done and discharge pictures taken.
--- NOTE | 2019-06-21 16:54 | NUR ---
D/C Planning Per consult for SNF placement for physical therapy. Information and choice letter was given to Pt at bedside. Pt requested [facility]. Pt verbalize understanding D/C Plan. Contacted [facility] ph:( [phone]) Fax:) Faxed medical records. Per Ruby from [facility] Pt has been accepted to room 8b accepting MD Dr. Jeff. Per Ruby from [facility] their transportation will arrange transport via wheelchair at 17:00pm. Informed NUZHAT Luis. Addendum: 06/21/19 at 1704 by RAFA KASPER Amended: Links added.
[2019-06-21 17:03] VITALS: BP 130/71
[2019-06-21 17:33] VITALS: BP 130/71
--- NOTE | 2019-06-21 17:40 | NUR ---
Discharge instructions given as ordered. Encourage to follow up with PMD as instructed. All questions and concerns addressed. Patient verbalized understanding. Medication reconciliation form completed and copy given to patient. IV removed with catheter intact and pressure dressing applied. Telemetry unit returned to ICU. Patient taken to vehicle via wheelchair with all personal belongings, accompanied by ambulance personnel. No distress noted at time of departure.
[2019-06-21] MEDS ORDERED: APIXABAN 5 MG TAB PO SCH ×2 (22:00)
== END 2019-06-21 17:40 | DRG 570 ==
LOC: ER 14:28 → TELE 14:29 → TELE-CENTR 06-16 08:07
PROVIDERS: ADMIT Nurse Practitioner; ATTEND Internal Medicine
PROC: 0JBN0ZZ Excision of Right Lower Leg Subcutaneous Tissue and Fascia, Open Approach (ICD-10-PCS; principal; 2019-06-20 13:01)
DX: L03.115 Cellulitis of right lower limb (principal); J96.21 Acute and chronic respiratory failure with hypoxia; I26.99 Other pulmonary embolism without acute cor pulmonale; I50.43 Acute on chronic combined systolic (congestive) and diastolic (congestive) heart failure; L97.919 Non-pressure chronic ulcer of unspecified part of right lower leg with unspecified severity; N39.0 Urinary tract infection, site not specified; J98.11 Atelectasis; J91.8 Pleural effusion in other conditions classified elsewhere; I11.0 Hypertensive heart disease with heart failure; I25.10 Atherosclerotic heart disease of native coronary artery without angina pectoris; F17.210 Nicotine dependence, cigarettes, uncomplicated; W18.39XA Other fall on same level, initial encounter; E03.9 Hypothyroidism, unspecified; I67.2 Cerebral atherosclerosis; R26.9 Unspecified abnormalities of gait and mobility; F10.20 Alcohol dependence, uncomplicated; J43.9 Emphysema, unspecified; I50.82 Biventricular heart failure; B95.2 Enterococcus as the cause of diseases classified elsewhere; B95.4 Other streptococcus as the cause of diseases classified elsewhere; R31.0 Gross hematuria; K57.30 Diverticulosis of large intestine without perforation or abscess without bleeding; N20.0 Calculus of kidney; I71.4 Abdominal aortic aneurysm, without rupture; I35.0 Nonrheumatic aortic (valve) stenosis; Y93.89 Activity, other specified; Z85.820 Personal history of malignant melanoma of skin; Y92.89 Other specified places as the place of occurrence of the external cause; Y99.8 Other external cause status; Z91.012 Allergy to eggs; Z91.048 Other nonmedicinal substance allergy status; Z79.01 Long term (current) use of anticoagulants; Z71.41 Alcohol abuse counseling and surveillance of alcoholic; Z71.6 Tobacco abuse counseling; Z79.899 Other long term (current) drug therapy; Z99.81 Dependence on supplemental oxygen; Z80.8 Family history of malignant neoplasm of other organs or systems
CPT/HCPCS: 36415; 36600; 51702; 70450; 71045; 71275; 73030; 73700; 74176; 78452; 80048; 80053; 80061; 81001; 82607; 82746; 82805; 83036; 83605; 83735; 83880; 84154; 84439; 84443; 84484; 85025; 85379; 85610; 85730; 87040; 87070; 87075; 87076; 87077; 87086; 87186; 87205; 93005; 93017; 93306; 93926; 93970; 94640; 95819; 96361; 96365; 96375; G0378; J0153; J0690; J0696; J1885; J2250; J2704; J3480; J3490